=== PATIENT | female | born 1990 | race Caucasian/White ===

== ENCOUNTER 2016-11-08 14:40 | Emergency (ER) | payer OTHER ==
[~2016-11-08] VITALS: Ht 157.5 cm; Wt 45.4 kg
[2016-11-08] MEDS ORDERED: OLANZAPINE 5 MG TABLET PO ONE (15:00)
[2016-11-08] MEDS ORDERED: ONDANSETRON 4 MG TAB.RAPDIS SL ONE (15:00)
[2016-11-08] MEDS ORDERED: OLANZAPINE 5 MG TABLET ONE (15:14)
[2016-11-08] MEDS ORDERED: ONDANSETRON 4 MG TAB.RAPDIS ONE (15:14)
[2016-11-08 15:18] LABS: BASOPHILS # (AUTO) 0.1 /CMM (0.0-0.2); BASOPHILS % (AUTO) 1.1 % (0.0-2.0); DIFF TOTAL % 100 %; EOSINOPHILS % (AUTO) 0.5 % (0.0-6.0); HEMATOCRIT 40 % (33-45); HEMOGLOBIN 13.5 g/dL (11.5-14.8); LYMPHOCYTES % (AUTO) 15.4 % (20.0-44.0); MEAN CORPUSCULAR HEMOGLOBIN 31 PG (26.0-33.0); MEAN CORPUSCULAR HGB CONC 34 g/dl (31.0-36.0); MEAN CORPUSCULAR VOLUME 91 fL (82-100); MONOCYTES # (AUTO) 0.5 /CMM (0.1-1.30); MONOCYTES % (AUTO) 7.1 % (2.0-12.0); NEUTROPHILS % (AUTO) 75.9 % (43.0-81.0); PLATELET COUNT (AUTO) 192 /CMM (150-450); RED BLOOD CELL COUNT(AUTO) 4.42 MIL/uL (4.0-5.2); WHITE BLOOD COUNT (AUTO) 6.6 K/uL (4.3-11.0)
[2016-11-08 15:31] LABS: ANION GAP 15 (5-14); CALCIUM, SERUM 9.6 mg/dL (8.5-10.1); CARBON DIOXIDE 25 mmol/L (21-32); CHLORIDE 107 mmol/L (98-107); CREATININE 0.6 mg/dL (0.6-1.3); GFR 121 mL/min (>60); GLUCOSE 100 mg/dL (74-106); POTASSIUM 3.6 mmol/L (3.5-5.1); SODIUM SERUM 143 mmol/L (136-145); UREA NITROGEN, BLOOD 10 mg/dL (7-18)
[2016-11-08 15:33] LABS: INR 1.04 (0.87-1.13); PROTHROMBIN TIME 10.9 SECS (9.5-12.7)
[2016-11-08 15:37] LABS: KETONES,URINE Negative (NEGATIVE); LEUKOCYTE ESTERASE ,URINE Small (NEGATIVE)
[2016-11-08 15:39] LABS: ACETAMINOPHEN 0 ug/ml (10-30); ALANINE AMINOTRANSFERASE 17 U/L (12-78); ALBUMIN 4.2 g/dL (3.4-5.0); ASPARTATE AMINOTRANSFERASE 16 U/L (15-37); BILIRUBIN,DIRECT 0.1 mg/dL (0.0-0.2); BILIRUBIN,TOTAL 0.3 mg/dL (0.2-1.0); INDIRECT BILIRUBIN 0.2 mg/dL (0.0-1.1); SALICYLATE 0.8 mg/dL (2.8-20.0); TOTAL PROTEIN, SERUM 7.7 g/dL (6.4-8.2)
[2016-11-08 15:42] LABS: ADD UA MICROSCOPIC YES
[2016-11-08 15:43] LABS: PREGNANCY TEST URINE QUAL NEGATIVE (NEGATIVE); RBC,URINE 51-80 /HPF (0-2)
[2016-11-08 15:44] LABS: ADD URINE CULTURE YES
[2016-11-08 15:50] LABS: CANNABINOID, URINE NEGATIVE (NEGATIVE); PHENCYCLIDINE SCREEN,URINE NEGATIVE (NEGATIVE)
[2016-11-08 16:51] VITALS: BP 118/67
== END 2016-11-08 16:52 | disposition home or self-care (01) ==
LOC: ER 15:13
DX: F29 Unspecified psychosis not due to a substance or known physiological condition (principal); R56.9 Unspecified convulsions; Z91.018 Allergy to other foods; R82.79 Other abnormal findings on microbiological examination of urine
CPT/HCPCS: 36415; 70450; 80048; 80076; 80305; 81001; 84703; 85025; 85730; 87086; 93005; 99285; A4606; G0480; G0481; G0482; Q0162; Z7610; 81000-TC; G6038-TC; G6039-TC; G6040-TC